=== PATIENT | male | born 1975 | race African-American/Black ===

== ENCOUNTER 2020-12-15 12:55 | Observation (INO) ==
[2020-12-15] MEDS ORDERED: NITROGLYCERIN SL 0.4 MG/TAB TAB SL PRN (13:05)
[2020-12-15 13:15] LABS: Basophils # (auto) 0.02 K/uL (0-0.2); Basophils % (auto) 0.3 %; Eosinophils # (auto) 0.32 K/uL (0-0.5); Eosinophils % (auto) 4.5 %; Hematocrit (blood only) 45.8 % (42-52); Hemoglobin 15.8 g/dL (14.0-18.0); Immature Granulocytes # (auto) 0.02 K/uL (0.00-0.02); Immature Granulocytes % (auto) 0.3 %; Lymphocytes # (auto) 1.77 K/uL (1.2-3.4); Lymphocytes % (auto) 25.1 %; Mean Corpuscular Hgb Conc 34.5 g/dL (32-36); Mean Corpuscular Volume 89.8 fL (80-100); Mean Platelet Volume 10.3 fL (7.4-10.4); Monocytes # (auto) 0.69 K/uL (0.11-0.59); Monocytes % (auto) 9.8 %; Neutrophils # (auto) 4.24 K/uL (1.4-6.5); Platelet Count 256 K/uL (130-400); RDW Coefficient of Variation 13.8 % (11.5-14.5); RDW Standard Deviation 45.3 fL (36.4-46.3); White Blood Count 7.06 K/uL (4.8-10.8)
[2020-12-15 13:25] LABS: D Dimer < 190 ug/L FEU (0-500); Partial Thromboplastin Time 27.3 Seconds (21.0-31.0)
[2020-12-15 13:34] LABS: BUN Creatinine Ratio 11.7 (10-20); Blood Urea Nitrogen 14 mg/dl (7-18); Calcium 9.8 mg/dl (8.5-10.1); Carbon Dioxide 28 mmol/L (21-32); Chloride 106 mmol/L (98-107); Creatinine Clr Calc Pharmacy 91.3 ml/min; Est GFR (African American) 83.8 ml/min; Est GFR (Non-African American) 72.3 ml/min; Glucose 105 mg/dl (70-99); Lipase 60 U/L (73-393); Potassium 3.8 mmol/L (3.5-5.1); Sodium 138 mmol/L (136-145)
[2020-12-15 13:38] LABS: Troponin I < 0.015 ng/ml (0-0.045)
--- NOTE | 2020-12-15 13:53 | Electrocardiogram Report ---
Test Reason : Blood Pressure : / mmHG Vent. Rate : 086 BPM Atrial Rate : 086 BPM P-R Int : 162 ms QRS Dur : 088 ms QT Int : 342 ms P-R-T Axes : 045 001 022 degrees QTc Int : 409 ms Normal sinus rhythm Nonspecific T wave abnormality Lateral leads Abnormal ECG When compared with ECG of 24-DEC-2018 06:30, T wave inversion no longer evident in Anterior leads Confirmed by Mike Brink ([id number]) on 12/15/2020 1:52:59 PM Referred By: [facility] Confirmed By:Mike Brink
--- NOTE | 2020-12-15 14:04 | Emergency Department Note ---
History of Present Illness General Chief Complaint: Chest Pain Stated Complaint: CHEST PAIN Time Seen by Provider: 12/15/20 12:58 History of Present Illness Provider Complaint: chest pain Onset (ago): week(s) Onset (Weeks): 1 Duration: intermittent Onset: during rest Pain Location: substernal and left chest Pain Radiation: LUE Severity: moderate Quality: + tightness and + other (tingling) Relieved By: + nitroglycerin Exacerbated By: + nothing Context: no recent illness, no recent surgery, no recent immobilization, no recent travel, no trauma/injury and no history of DVT/PE Associated symptoms: + dyspnea; no diaphoresis, no palpitations, no cough and no leg swelling Treatments prior to arrival: aspirin Home Medications Medication Instructions Recorded Confirmed Type aripiprazole [Abilify] 15 mg PO HS 12/22/18 12/22/18 History calcium carbonate [Oyster Shell 500 mg PO TID 12/22/18 12/22/18 History Calcium 500] calcium polycarbophil [Fiber 1,250 mg PO BID 12/22/18 12/22/18 History (calcium polycarbophil)] carvedilol 25 mg PO BID 12/22/18 12/22/18 History diphenhydramine HCl 100 mg PO HS 12/22/18 12/22/18 History escitalopram oxalate [Lexapro] 10 mg PO HS 12/22/18 12/22/18 History lisinopril 40 mg PO DAILY 12/22/18 12/22/18 History ranitidine HCl 150 mg PO BID 12/22/18 12/22/18 History trazodone 50 mg PO HS 12/22/18 12/22/18 History Allergies Allergy/AdvReac Type Severity Reaction Status Date / Time No Known Allergies Allergy Unverified 12/22/18 11:10 Past Med/Surg History Medical History Dyslipidemia GERD (gastroesophageal reflux disease) Hypertension Mood disorder Surgical History H/O removal of cyst Family History Father Myocardial infarction Brother Myocardial infarction Other Diabetes Social History Smoking Status: Never smoker Hx Alcohol Use: No Hx Substance Use: No Preferred Language: Gabonese Communication Ability: Effective Playground 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 Required: No Beliefs That Will Affect Care: Rastafari Rastafari Beliefs: Baptist marital status: Unknown Current Living Situation: Other Current Living Situation Comment: [facility] Feels Safe at Home: Yes Assistive Devices: Glasses Review of Systems A total of 10 systems reviewed and were otherwise negative Physical Exam Vital Signs Vital Signs - 24 hr 12/15/20 13:01 12/15/20 13:19 12/15/20 13:20 Temperature 37.1 C Temperature Source Oral Pulse Rate 90 Pulse Rate from SpO2 Sensor Pulse Rhythm Regular Pulse Strength Normal Respiratory Rate 16 Respiratory Effort / Characteristics Non-Labored Spontaneous Respiratory Depth Normal Respiratory Pattern Regular Blood Pressure 171/122 H Blood Pressure Mean 138 Pulse Oximetry 98 98 Oxygen Delivery Method Room Air Room Air Room Air Sepsis Recent Fever Within 48 Hours No Sepsis New/Unexplained Change in Mental Status No Sepsis Action Taken by Nursing No Action Required 12/15/20 13:35 12/15/20 14:29 Temperature Temperature Source Pulse Rate 97 H 93 H Pulse Rate from SpO2 Sensor 96 H 91 H Pulse Rhythm Pulse Strength Respiratory Rate 18 17 Respiratory Effort / Characteristics Respiratory Depth Respiratory Pattern Blood Pressure 164/110 H 187/130 H Blood Pressure Mean 128 149 Pulse Oximetry 93 96 Oxygen Delivery Method Sepsis Recent Fever Within 48 Hours Sepsis New/Unexplained Change in Mental Status Sepsis Action Taken by Nursing Physical Exam GENERAL: He is oriented to person, place, and time. He appears well-developed and well-nourished. He does not appear distressed. In handcuffs and leg cuffs with police guards at bedside. HENT: Exam performed. - Head: Normocephalic and atraumatic. - Right Ear: External ear normal. No mastoid tenderness. - Left Ear: External ear normal. No mastoid tenderness. - Mouth/Throat: The oropharynx is clear and moist. No trismus in the jaw. No dental abscesses or uvula swelling. No oropharyngeal exudate or tonsillar abscesses. EYES: Conjunctivae and EOM are normal. Pupils are equal, round, and reactive to light. Right eye exhibits no discharge. Left eye exhibits no discharge. No scleral icterus. NECK: Normal range of motion. Neck supple. No JVD present. No spinous process tenderness present. No carotid bruit present. No rigidity. No tracheal deviation and normal range of motion present. No Brudzinski's sign and no Kernig's sign noted. CV: Normal rate, regular rhythm, normal heart sounds and intact distal pulses. There is no peripheral edema. Palpable radial pulses bue. PULM/CHEST: Effort normal and breath sounds normal. No respiratory distress. No stridor. He has no wheezes. He has no rales. - Chest Wall: He exhibits no tenderness. ABD: The abdomen is soft. Bowel sounds are normal. He has no distension. No mass is present. There is no tenderness. There is no rebound, no guarding, no Justin's sign and no tenderness at McBurney's point. Rovsig negative. MUSC/SKEL: Normal range of motion. There is no peripheral edema, tenderness or deformity. LYMPH: No cervical adenopathy. NEURO: He is alert and oriented to person, place, and time. He has normal strength. No cranial nerve deficit or sensory deficit. Coordination and gait normal. GCS eye subscore is 4. GCS verbal subscore is 5. GCS motor subscore is 6. Cerebellar tests wnl. SKIN: Skin is warm and dry. He is not diaphoretic. PSYCH: He has a normal mood and affect. Behavior is normal. Judgment and thought content normal. Course Course 1258: The patient was evaluated in room A11. A complete history and physical exam was performed Cardiac monitoring: An order was placed for continuous cardiac monitoring. The monitor shows a rate of 90 with sinus rhythm 1428: Vital signs stable. Patient states his chest pain resolved with 1 sublingual nitro. Labs and imaging within normal limits. Patient be admitted for chest pain rule out ACS. [facility] hospitalist team will be contacted Medical Decision Making Laboratory Data Result diagrams: 12/15/20 13:05 12/15/20 13:05 Labs: Lab Results 12/15/20 12/15/20 12/15/20 Range/Units 13:05 13:05 13:05 WBC 7.06 (4.8-10.8) K/uL RBC 5.10 (4.7-6.1) M/uL Hgb 15.8 (14.0-18.0) g/dL Hct 45.8 (42-52) % MCV 89.8 (80-100) fL MCH 31.0 (25-34) pg MCHC 34.5 (32-36) g/dL RDW Std Deviation 45.3 (36.4-46.3) fL RDW Coeff of Janneth 13.8 (11.5-14.5) % Plt Count 256 (130-400) K/uL MPV 10.3 (7.4-10.4) fL Immature Gran % (Auto) 0.3 % Neut % (Auto) 60.0 % Lymph % (Auto) 25.1 % [place] % (Auto) 9.8 % Eos % (Auto) 4.5 % Baso % (Auto) 0.3 % Neut # (Auto) 4.24 (1.4-6.5) K/uL Lymph # (Auto) 1.77 (1.2-3.4) K/uL [place] # (Auto) 0.69 H (0.11-0.59) K/uL Eos # (Auto) 0.32 (0-0.5) K/uL Baso # (Auto) 0.02 (0-0.2) K/uL Immature Gran # (Auto) 0.02 (0.00-0.02) K/uL PT 10.0 (9.0-12.0) Seconds INR 1.0 (0.9-1.1) APTT 27.3 (21.0-31.0) Seconds PTT Ratio 1.0 D-Dimer < 190 (0-500) ug/L FEU Sodium 138 (136-145) mmol/L Potassium 3.8 (3.5-5.1) mmol/L Chloride 106 (98-107) mmol/L Carbon Dioxide 28 (21-32) mmol/L Anion Gap 4.0 (3-11) BUN 14 (7-18) mg/dl Creatinine 1.19 (0.6-1.4) mg/dl Est Cr Clr Drug Dosing 91.3 ml/min Est GFR ( Amer) 83.8 ml/min Est GFR (Non-Af Amer) 72.3 ml/min BUN/Creatinine Ratio 11.7 (10-20) Glucose 105 H (70-99) mg/dl Calcium 9.8 (8.5-10.1) mg/dl Troponin I < 0.015 (0-0.045) ng/ml Lipase 60 L (73-393) U/L Imaging Data Chest x-ray: Radiologist's impression: Chest X-Ray 06/04/21 13:05 XR chest 2V PA/lateral HISTORY: Atypical Chest Pain COMPARISON: Chest CTA 12/22/2018. FINDINGS: The lungs are clear. The heart is normal in size. No pleural effusions. No pneumothorax. Left coronary artery stents are noted. IMPRESSION: No acute process. ACT 112: Negative or not required by law. Electronically signed by: Cory Daly M.D. 12/15/2020 2:07 PM ECG Data Indication: chest pain Rate (beats per minute): 86 Rhythm: normal sinus Findings: no ST depression, no ST elevation and no prolonged QT MDM Narrative Vital signs stable. Patient states his chest pain resolved with 1 sublingual nitro. Labs and imaging within normal limits. Patient be admitted for chest pain rule out ACS. [facility] hospitalist team will be contacted Impression & Plan Chest pain Discharge Plan Visit Data Chief Complaint: Chest Pain Stated Complaint: CHEST PAIN ED Provider: Aldo Townsend Discharge Problem: Chest pain Patient Disposition: Being Evaluated by Hospitalist Forms Stand Alone Forms: [facility] Prescriptions Prescriptions: No Action carvedilol 25 mg Tablet 25 mg PO BID RF: 0 diphenhydramine HCl 50 mg Capsule 100 mg PO HS RF: 0 trazodone 50 mg Tablet 50 mg PO HS RF: 0 calcium carbonate [Oyster Shell Calcium 500] 500 mg calcium (1,250 mg) Tablet 500 mg PO TID RF: 0 ranitidine HCl 150 mg Tablet 150 mg PO BID RF: 0 calcium polycarbophil [Fiber (calcium polycarbophil)] 625 mg Tablet 1,250 mg PO BID RF: 0 lisinopril 40 mg Tablet 40 mg PO DAILY RF: 0 escitalopram oxalate [Lexapro] 10 mg Tablet 10 mg PO HS RF: 0 aripiprazole [Abilify] 15 mg Tablet 15 mg PO HS RF: 0 Referrals Referrals: Hema ADEN [Primary Care Provider] - Discharge Problem: Chest pain Qualifiers: Chest pain type: unspecified Qualified Code(s): R07.9 - Chest pain, unspecified
--- NOTE | 2020-12-15 14:09 | XRay Report ---
XR chest 2V PA/lateral HISTORY: Atypical Chest Pain COMPARISON: Chest CTA 12/22/2018. FINDINGS: The lungs are clear. The heart is normal in size. No pleural effusions. No pneumothorax. Le ft coronary artery stents are noted. IMPRESSION: No acute process. ACT 112: Negative or not required by law. Electronically signed by: Cory Daly M.D. 12/15/2020 2:07 PM
[2020-12-15] MEDS ORDERED: ASPIRIN 81 MG CHEW PO STA (15:49)
--- NOTE | 2020-12-15 15:53 | History & Physical Report ---
Date of Service December 15, 2020 Assessment & Plan (1) Chest pain: (2) CAD (coronary artery disease): Pt is 45 y/o M with PMH CAD s/p JAZZY stent x2 to CAD and 1 JAZZY to obtuse marginal in 12/22/2018, HTN, HLD, GERD, mood disorder presented to ER with complaint of progressive chest pain, SOB over past several months, worsening past week requiring 2 SL nitro twice day. In ER afebrile, P: 90, R: 16, BP: 171/122, 98% on RA Was given 324mg ASA prior to arrival in ER. In ER pt given 1 SL nitro with resolution of CP. Negative initial troponin. EKG with T wave flattening lateral leads, compared to EKG in 2019 no further T wave inversion anterior leads. CHEST PAIN R/O ACS vs Hypertensive emergency -Monitor Vitals -Repeat EKG in am -Will trend troponin -Echo -Nitropaste Q6H. Hold home isosorbide while nitropaste -lipid panel in am, continue statin -Continue aspirin, Brillinta, carvedilol, digoxin -Digoxin level pending -Cardiology consult (3) Hypertension: Elevated BP's in ER -Nitropaste Q6H -Continue amlodipine, carvedilol, lisinopril (4) Dyslipidemia: -Continue statin (5) Mood disorder: -Continue Abilify, diphenhydramine (6) GERD (gastroesophageal reflux disease): -Continue PPI DVT Prophylaxis -SCDs Full Code [facility] inmate Pt was seen and care coordinated with Dr Fam. See addendum History of Present Illness Chief Complaint: CP Primary Care Provider: MARKIE Garrido Pt is 45 y/o M with PMH CAD s/p JAZZY stent x2 to CAD and 1 JAZZY to obtuse marginal in 12/22/2018, HTN, HLD, GERD, mood disorder presented to ER with complaint of progressive chest pain. Patient states since his stent placement in 2019 he has intermittent left-sided chest pain with radiation to left arm which occurs approximately twice a week and he uses 1 sublingual nitroglycerin with relief. CP can occur at rest or with exertion. States over the past 2 months has noticed increased symptoms occurring more frequently in the past week has been needing to use 2 sublingual nitroglycerin a day secondary to left-sided chest pain with radiation to left arm and left arm tingling. He also reports worsening shortness of breath over the past several months with exertion. Reports has some night awakenings waking up with shortness of breath and gasping for air. C/O intermittent palpitations not associated with CP. Also reports nonproductive cough. Denies any lower extremity edema. He reports his blood pressures have been running high over the past several months and denies any medication changes. Pt reports chronic dizziness that he relates to his medications, denies any changes from baseline. Denies fever/chills, diaphoresis, N/V/D/C, TRIPLETT, syncope, vision changes, neck pain, sore throat, choking, otalgia, rhinorrhea, abdominal pain, paresthesias, weakness, extremity weakness, rashes, urinary symptoms. Was given 324mg ASA prior to arrival in ER. In ER pt given 1 SL nitro with resolution of CP. Negative initial troponin. EKG with T wave flattening lateral leads, compared to EKG in 2019 no further T wave inversion anterior leads. Will be admitted for further evaluation. Allergies Allergy/AdvReac Type Severity Reaction Status Date / Time sodium chloride AdvReac Unknown CONTRAINDICATION Verified 12/15/20 15:32 [From [place] Nasal] PER [facility]. Home Medications Medication Instructions Recorded Confirmed Type carvedilol 50 mg PO BID 12/22/18 12/15/20 History diphenhydramine HCl 100 mg PO HS 12/22/18 12/15/20 History lisinopril 40 mg PO QAM 12/22/18 12/15/20 History amlodipine 10 mg PO QAM 12/15/20 12/15/20 History aripiprazole [Abilify] 5 mg PO HS 12/15/20 12/15/20 History aripiprazole [Abilify] 20 mg PO QAM 12/15/20 12/15/20 History aspirin 81 mg PO QAM 12/15/20 12/15/20 History celecoxib [Celebrex] 200 mg PO BID 12/15/20 12/15/20 History digoxin 125 mcg PO QAM 12/15/20 12/15/20 History duloxetine See Rx Instructions .ROUTE .COMPLEX 12/15/20 12/15/20 History isosorbide mononitrate 30 mg PO QAM 12/15/20 12/15/20 History nitroglycerin [Nitrostat] 0.4 mg SUBLINGUAL DIRECTED PRN 12/15/20 12/15/20 History omeprazole 20 mg PO BID 12/15/20 12/15/20 History rosuvastatin 20 mg PO HS 12/15/20 12/15/20 History ticagrelor [Brilinta] 90 mg PO BID 12/15/20 12/15/20 History Past Med/Surg History Medical History (Updated 12/15/20 @ 18:27 by Kalee Patel PA-C) CAD (coronary artery disease) Dyslipidemia GERD (gastroesophageal reflux disease) GERD (gastroesophageal reflux disease) Hypertension Mood disorder Surgical History H/O removal of cyst History of cardiac cath 12/22/2018 [facility]CA 2 JAZZY to LAD and 1 JAZZY to obtuse marginal, [facility] Family History Father Myocardial infarction Brother Myocardial infarction Other Diabetes Social History Smoking Status: Current some day smoker Second Hand Exposure: No; Do You Dip or Chew Tobacco: No; Tobacco Cessation Education Requested by Patient: No Hx Alcohol Use: No Hx Substance Use: No Preferred Language: Tunisian Communication Ability: Effective Allergy And Immunology Chief Required: No Beliefs That Will Affect Care: None marital status: Unknown Current Living Situation: Other Current Living Situation Comment: [place] Other Information That Helps Us Care for You: No Feels Safe at Home: Yes Assistive Devices: Glasses Review of Systems Review of Systems: All systems reviewed & are unremarkable except as noted in HPI & below Physical Exam Physical Exam: General: no distress, obese Head: normocephalic, atraumatic Eyes: PERRL, EOM's intact, conjunctiva non-injected, anicteric ENT: normal inspection external ears, nose, mucous membranes moist Neck: supple, trachea midline Lungs: clear, no respiratory distress, no wheezing/rhonchi/rales CV: RRR, no murmur, no pretibial edema Abd: normal BS, soft, non-tender Ext: no cyanosis, no calf tenderness Neuro: A&O x 3, no focal deficits noted, normal affect Skin: warm, dry Results & Data Results & Data ([facility]) Vital Signs (Past 12 Hours) Vital Signs Temp Pulse Resp BP Pulse Ox 12/15/20 15:34 84 20 181/125 H 96 12/15/20 15:00 94 H 14 181/122 H 96 12/15/20 14:30 87 18 190/126 H 98 12/15/20 14:29 93 H 17 187/130 H 96 12/15/20 13:35 97 H 18 164/110 H 93 12/15/20 13:19 98 12/15/20 13:01 37.1 C 90 16 171/122 H 98 Laboratory Results Short CBC 12/15/20 Range/Units 13:05 WBC 7.06 (4.8-10.8) K/uL Hgb 15.8 (14.0-18.0) g/dL Hct 45.8 (42-52) % Plt Count 256 (130-400) K/uL BMP 12/15/20 13:05 Sodium 138 Potassium 3.8 Chloride 106 Carbon Dioxide 28 BUN 14 Creatinine 1.19 Glucose 105 H Calcium 9.8 Cardiac Enzymes 12/15/20 Range/Units 13:05 Troponin I < 0.015 (0-0.045) ng/ml Diagnostic Findings Chest X-Ray 12/15/20 13:05 XR chest 2V PA/lateral HISTORY: Atypical Chest Pain COMPARISON: Chest CTA 12/22/2018. FINDINGS: The lungs are clear. The heart is normal in size. No pleural effusions. No pneumothorax. Left coronary artery stents are noted. IMPRESSION: No acute process. ACT 112: Negative or not required by law. Electronically signed by: Cory Daly M.D. 12/15/2020 2:07 PM ECG Rate (beats per minute): 86 Rhythm: sinus rhythm Additional Comments: T wave flattening lateral leads Code Status & VTE Plan VTE Prophylaxis Plan VTE Prophylaxis will be ordered: Yes Supervising Physician Co-Signing Physician Notes Attending addendum The patient was seen and examined in emergency room He has been complaining of pain in the precordium with radiation to the neck and the left upper extremity which is off and on for some time and worsening for the past week He received 1 sublingual nitro and 324 mg aspirin in the emergency room and the pain is reasonably controlled He has a significant history of CAD status post JAZZY stent x2 to LAD and obtuse marginal on 12/22/2018 He was admitted to telemetry unit for continued management On examination Lying in bed comfortably Hemodynamically stable with blood pressure on the higher side Chest-clear to auscultate bilaterally Heart-S1-S2, regular, no murmur Abdomen-benign Extremities-trace edema bilaterally 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
[2020-12-15] MEDS ORDERED: lisinopril 40 MG TAB PO STA (16:08)
[2020-12-15] MEDS ORDERED: carvediloL 25 MG TAB PO STA (16:08)
[2020-12-15] MEDS ORDERED: ACETAMINOPHEN 325 MG TAB PO PRN (18:20)
[2020-12-15] MEDS: NITROGLYCERIN 2% OINTMENT 30GM TUBE EXT SCH ×2 (19:44→21:08)
[2020-12-15] MEDS ORDERED: amLODIPine BESYLATE 5 MG TAB PO ONE (20:00)
[2020-12-15] MEDS: carvediloL 25 MG TAB PO SCH (21:03)
[2020-12-15] MEDS: ARIPiprazole 5 MG TAB PO SCH (21:03)
[2020-12-15] MEDS: diphenhydrAMINE Capsule 25 MG CAP PO SCH (21:03)
[2020-12-15] MEDS: ROSUVASTATIN CALCIUM 20 MG TAB PO SCH (21:04)
[2020-12-15] MEDS: TICAGRELOR 90 MG TAB PO SCH (21:04)
[2020-12-15] MEDS: PANTOprazole 40 MG TAB PO SCH (21:04)
[2020-12-16] MEDS ORDERED: CALCIUM CARBONATE 500 MG CHEWABLE TAB PO STA (01:30)
[2020-12-16] MEDS: NITROGLYCERIN 2% OINTMENT 30GM TUBE EXT SCH ×4 (03:45→21:02)
[2020-12-16 05:57] LABS: Hematocrit (blood only) 44.5 % (42-52); Hemoglobin 15.3 g/dL (14.0-18.0); Mean Corpuscular Hemoglobin 30.8 pg (25-34); Mean Corpuscular Hgb Conc 34.4 g/dL (32-36); Mean Corpuscular Volume 89.5 fL (80-100); Platelet Count 214 K/uL (130-400); RDW Coefficient of Variation 13.8 % (11.5-14.5); Red Blood Count 4.97 M/uL (4.7-6.1); White Blood Count 6.79 K/uL (4.8-10.8)
[2020-12-16 06:36] LABS: BUN Creatinine Ratio 15.1 (10-20); Creatinine Clr Calc Pharmacy 107.4 ml/min; Est GFR (African American) 102.2 ml/min; Est GFR (Non-African American) 88.2 ml/min; Potassium 3.7 mmol/L (3.5-5.1)
--- NOTE | 2020-12-16 07:48 | Electrocardiogram Report ---
Test Reason : Blood Pressure : / mmHG Vent. Rate : 081 BPM Atrial Rate : 081 BPM P-R Int : 176 ms QRS Dur : 096 ms QT Int : 354 ms P-R-T Axes : 056 016 -06 degrees QTc Int : 411 ms Normal sinus rhythm Diffuse Nonspecific T wave abnormality Abnormal ECG When compared with ECG of 15-DEC-2020 13:03, No significant change was found Confirmed by Mike Brink ([id number]) on 12/16/2020 7:48:09 AM Referred By: [facility] Confirmed By:Mike Brink
[2020-12-16] MEDS ORDERED: SODIUM CHLORIDE 0.65% NA SOLN 45 ML (OCEAN) PRN (08:34)
[2020-12-16] MEDS: ASPIRIN 81 MG ECTAB PO SCH (09:01)
[2020-12-16] MEDS: amLODIPine BESYLATE 5 MG TAB PO SCH (09:01)
[2020-12-16] MEDS: ISOSORBIDE MONO EXTENDED REL 30 MG TABCR PO SCH (09:02)
[2020-12-16] MEDS: DIGOXIN 0.125 MG TAB PO SCH (09:02)
[2020-12-16] MEDS: ARIPiprazole 10 MG TAB PO SCH (09:02)
[2020-12-16] MEDS: lisinopril 40 MG TAB PO SCH (09:02)
[2020-12-16] MEDS: TICAGRELOR 90 MG TAB PO SCH ×2 (09:03→21:02)
[2020-12-16] MEDS: carvediloL 25 MG TAB PO SCH ×2 (09:03→21:03)
[2020-12-16] MEDS: PANTOprazole 40 MG TAB PO SCH ×2 (09:03→21:02)
--- NOTE | 2020-12-16 09:41 | Cardiology Consultation ---
Date of Consultation December 16, 2020 Assessment & Plan (1) Chest pain: (2) CAD (coronary artery disease): (3) Hypertension: (4) Ischemic cardiomyopathy: (5) GERD (gastroesophageal reflux disease): The patient has had no chest pain since admission. His cardiac markers are negative. EKG shows nonspecific changes. He is hypertensive and I will adjust his medications. He had an echocardiogram completed this morning which I will review. During his admission in 2019 he had an estimated left ventricular ejection fraction of 30% after his stent procedures. We should update his ischemic cardiomyopathy and LV function. The patient can eat today. I will have further recommendations after I review the echocardiogram. The patient's blood pressure seems to be better after he received his morning medications. History of Present Illness Attending Physician: Waldemar Olson MD History of Present Illness This is a 45-year-old male patient who was last in this hospital and last seen by my group in 2019 when he presented with a non-STEMI and received stents within his LAD and obtuse marginal from the left circumflex artery. He was then lost to follow-up most likely because he is incarcerated. He is now been admitted with chest pain. The pain has been present for approximately 1 to 2 weeks. It is intermittent and not associated to activity. He describes it as a discomfort over his left breast with some paresthesias in the left hand. It last for several minutes and then spontaneously resolves or he takes a sublingual nitroglycerin. He is noted his blood pressure has been high and he has been self-medicating with additional blood pressure medications when he feels he needs it. He does have a history of reflux for which he takes Prilosec. His discomfort is not associated to food. He has had no nausea vomiting. Allergies Allergy/AdvReac Type Severity Reaction Status Date / Time No Known Allergies Allergy Verified 12/16/20 08:50 Home Medications Medication Instructions Recorded Confirmed Type carvedilol 50 mg PO BID 12/22/18 12/15/20 History diphenhydramine HCl 100 mg PO HS 12/22/18 12/15/20 History lisinopril 40 mg PO QAM 12/22/18 12/15/20 History amlodipine 10 mg PO QAM 12/15/20 12/15/20 History aripiprazole [Abilify] 5 mg PO HS 12/15/20 12/15/20 History aripiprazole [Abilify] 20 mg PO QAM 12/15/20 12/15/20 History aspirin 81 mg PO QAM 12/15/20 12/15/20 History celecoxib [Celebrex] 200 mg PO BID 12/15/20 12/15/20 History digoxin 125 mcg PO QAM 12/15/20 12/15/20 History duloxetine See Rx Instructions .ROUTE .COMPLEX 12/15/20 12/15/20 History isosorbide mononitrate 30 mg PO QAM 12/15/20 12/15/20 History nitroglycerin [Nitrostat] 0.4 mg SUBLINGUAL DIRECTED PRN 12/15/20 12/15/20 History omeprazole 20 mg PO BID 12/15/20 12/15/20 History rosuvastatin 20 mg PO HS 12/15/20 12/15/20 History ticagrelor [Brilinta] 90 mg PO BID 12/15/20 12/15/20 History Patient History Medical History CAD (coronary artery disease) Dyslipidemia GERD (gastroesophageal reflux disease) GERD (gastroesophageal reflux disease) Hypertension Mood disorder Surgical History H/O removal of cyst History of cardiac cath 12/22/2018 [facility]CA 2 JAZZY to LAD and 1 JAZZY to obtuse marginal, [facility] Family History Father Myocardial infarction Brother Myocardial infarction Other Diabetes Social History Smoking Status: Current some day smoker Second Hand Exposure: No; Do You Dip or Chew Tobacco: No; Tobacco Cessation Education Requested by Patient: No Hx Alcohol Use: No Hx Substance Use: No Preferred Language: Kazakh Communication Ability: Effective Manager Instrumentation Required: No Beliefs That Will Affect Care: None marital status: Unknown Current Living Situation: Other Current Living Situation Comment: DOC Other Information That Helps Us Care for You: No Feels Safe at Home: Yes Assistive Devices: Glasses Review of Systems Review of Systems: All systems reviewed & are unremarkable except as noted in HPI & below In addition the patient has had no melena or hematochezia. Physical Exam Physical Exam: General: no acute distress and stated age Head: normocephalic, no masses, lesions, tenderness or abnormalities Eyes: conjunctiva are pink and non-injected, sclera clear Neck: supple, no adenopathy, no bruits, normal jugular venous pulse, no hepatojugular reflux Chest: normal shape and normal respiratory effort Lungs: clear to auscultation and percussion Cardiac Exam: - regular rate & rhythm, no murmurs gallops or rubs - normal S1, normal S2 Pulses: 2(+) throughout Abdomen: abdomen soft, non-tender, no abnormal masses and no hepatosplenomegaly Musculoskeletal: no gait disturbance, no joint inflammation, no deforming arthritis Extremities: no edema and no cyanosis Neuro: grossly normal exam Results & Data ([facility]) Vital Signs (Past 12 Hours) Vital Signs Temp Pulse Resp BP Pulse Ox 12/16/20 09:02 88 12/16/20 07:31 85 12/16/20 06:19 69 19 139/94 94 12/16/20 05:19 72 16 173/105 H 90 12/16/20 04:18 77 19 142/101 H 93 12/16/20 04:00 36.8 C 12/16/20 03:18 84 11 L 133/88 93 12/16/20 02:18 75 15 117/97 95 12/16/20 01:18 87 19 153/99 H 95 12/16/20 00:19 96 H 22 135/91 92 12/16/20 00:00 36.6 C 90 12/15/20 23:18 83 15 132/80 97 12/15/20 22:18 79 20 147/91 H 92 Laboratory Results Laboratory Results - last 24 hr 12/15/20 12/15/20 12/15/20 13:05 13:05 13:05 WBC 7.06 RBC 5.10 Hgb 15.8 Hct 45.8 MCV 89.8 MCH 31.0 MCHC 34.5 RDW Std Deviation 45.3 RDW Coeff of Janneth 13.8 Plt Count 256 MPV 10.3 Immature Gran % (Auto) 0.3 Neut % (Auto) 60.0 Lymph % (Auto) 25.1 [place] % (Auto) 9.8 Eos % (Auto) 4.5 Baso % (Auto) 0.3 Neut # (Auto) 4.24 Lymph # (Auto) 1.77 [place] # (Auto) 0.69 H Eos # (Auto) 0.32 Baso # (Auto) 0.02 Immature Gran # (Auto) 0.02 PT 10.0 INR 1.0 APTT 27.3 PTT Ratio 1.0 D-Dimer < 190 Sodium 138 Potassium 3.8 Chloride 106 Carbon Dioxide 28 Anion Gap 4.0 BUN 14 Creatinine 1.19 Est Cr Clr Drug Dosing 91.3 Est GFR ( Amer) 83.8 Est GFR (Non-Af Amer) 72.3 BUN/Creatinine Ratio 11.7 Glucose 105 H Calcium 9.8 Troponin I < 0.015 Triglycerides Cholesterol LDL Cholesterol, Calc VLDL Cholesterol, Calc HDL Cholesterol Cholesterol/HDL Ratio Lipase 60 L Nasal Screen MRSA (PCR) Digoxin COVID-19 Eval Order SARS-CoV-2 (PCR) 12/15/20 12/15/20 12/15/20 14:35 14:35 16:19 WBC RBC Hgb Hct MCV MCH MCHC RDW Std Deviation RDW Coeff of Janneth Plt Count MPV Immature Gran % (Auto) Neut % (Auto) Lymph % (Auto) [place] % (Auto) Eos % (Auto) Baso % (Auto) Neut # (Auto) Lymph # (Auto) [place] # (Auto) Eos # (Auto) Baso # (Auto) Immature Gran # (Auto) PT INR APTT PTT Ratio D-Dimer Sodium Potassium Chloride Carbon Dioxide Anion Gap BUN Creatinine Est Cr Clr Drug Dosing Est GFR ( Amer) Est GFR (Non-Af Amer) BUN/Creatinine Ratio Glucose Calcium Troponin I Triglycerides Cholesterol LDL Cholesterol, Calc VLDL Cholesterol, Calc HDL Cholesterol Cholesterol/HDL Ratio Lipase Nasal Screen MRSA (PCR) Digoxin 0.4 L COVID-19 Eval Order Covid19 at [facility] SARS-CoV-2 (PCR) NEGATIVE 12/15/20 12/16/20 12/16/20 19:11 00:55 00:55 WBC RBC Hgb Hct MCV MCH MCHC RDW Std Deviation RDW Coeff of Janneth Plt Count MPV Immature Gran % (Auto) Neut % (Auto) Lymph % (Auto) [place] % (Auto) Eos % (Auto) Baso % (Auto) Neut # (Auto) Lymph # (Auto) [place] # (Auto) Eos # (Auto) Baso # (Auto) Immature Gran # (Auto) PT INR APTT PTT Ratio D-Dimer Sodium Potassium Chloride Carbon Dioxide Anion Gap BUN Creatinine Est Cr Clr Drug Dosing Est GFR ( Amer) Est GFR (Non-Af Amer) BUN/Creatinine Ratio Glucose Calcium Troponin I < 0.015 < 0.015 Triglycerides Cholesterol LDL Cholesterol, Calc VLDL Cholesterol, Calc HDL Cholesterol Cholesterol/HDL Ratio Lipase Nasal Screen MRSA (PCR) Negative Digoxin COVID-19 Eval Order SARS-CoV-2 (PCR) 12/16/20 12/16/20 05:35 05:35 WBC 6.79 RBC 4.97 Hgb 15.3 Hct 44.5 MCV 89.5 MCH 30.8 MCHC 34.4 RDW Std Deviation 45.0 RDW Coeff of Janneth 13.8 Plt Count 214 MPV 10.0 Immature Gran % (Auto) Neut % (Auto) Lymph % (Auto) [place] % (Auto) Eos % (Auto) Baso % (Auto) Neut # (Auto) Lymph # (Auto) [place] # (Auto) Eos # (Auto) Baso # (Auto) Immature Gran # (Auto) PT INR APTT PTT Ratio D-Dimer Sodium 140 Potassium 3.7 Chloride 108 H Carbon Dioxide 25 Anion Gap 7.0 BUN 15 Creatinine 1.01 Est Cr Clr Drug Dosing 107.4 Est GFR ( Amer) 102.2 Est GFR (Non-Af Amer) 88.2 BUN/Creatinine Ratio 15.1 Glucose 113 H Calcium 9.0 Troponin I Triglycerides 93 Cholesterol 108 LDL Cholesterol, Calc 57 VLDL Cholesterol, Calc 19 HDL Cholesterol 32 Cholesterol/HDL Ratio 3 Lipase Nasal Screen MRSA (PCR) Digoxin COVID-19 Eval Order SARS-CoV-2 (PCR) Medications Administered Current Inpatient Medications Acetaminophen (Acetaminophen 325 Mg Tab) 650 mg PO Q4H PRN PRN Reason: Pain or Fever Stop: 01/14/21 18:19 Amlodipine Besylate (Amlodipine Besylate 5 Mg Tab) 10 mg PO QAM [facility] Stop: 01/15/21 08:59 Last Admin: 12/16/20 09:01 Dose: 10 mg Documented by: Aripiprazole (Aripiprazole 10 Mg Tab) 20 mg PO QAM [facility] DE JESUS Stop: 01/15/21 08:59 Last Admin: 12/16/20 09:02 Dose: 20 mg Documented by: Aripiprazole (Aripiprazole 5 Mg Tab) 5 mg PO [facility] Stop: 01/14/21 20:59 Last Admin: 12/15/20 21:03 Dose: 5 mg Documented by: Aspirin (Aspirin 81 Mg Ectab) 81 mg PO [facility] Stop: 01/15/21 08:59 Last Admin: 12/16/20 09:01 Dose: 81 mg Documented by: Carvedilol (Carvedilol 25 Mg Tab) 50 mg PO BID [facility] Stop: 01/14/21 20:59 Last Admin: 12/16/20 09:03 Dose: 50 mg Documented by: Digoxin (Digoxin 0.125 Mg Tab) 0.125 mg PO [facility] Stop: 01/15/21 08:59 Last Admin: 12/16/20 09:02 Dose: 0.125 mg Documented by: Diphenhydramine HCl (Diphenhydramine Capsule 25 Mg Cap) 100 mg PO [facility] Stop: 01/14/21 20:59 Last Admin: 12/15/20 21:03 Dose: 100 mg Documented by: Isosorbide Mononitrate (Isosorbide [place] Extended Rel 30 Mg Tabcr) 30 mg PO [facility] Stop: 01/15/21 08:59 Last Admin: 12/16/20 09:02 Dose: 30 mg Documented by: Lisinopril (Lisinopril 40 Mg Tab) 40 mg PO [facility] Stop: 01/15/21 08:59 Last Admin: 12/16/20 09:02 Dose: 40 mg Documented by: Nitroglycerin (Nitroglycerin 2% Ointment 30gm Tube) 1 inch EXT Q6H [facility] Stop: 01/14/21 15:44 Last Admin: 12/16/20 09:07 Dose: 1 inch Documented by: Pantoprazole Sodium (Pantoprazole 40 Mg Tab) 40 mg PO BID [facility]; Protocol Stop: 01/14/21 20:59 Last Admin: 12/16/20 09:03 Dose: 40 mg Documented by: Rosuvastatin Calcium (Rosuvastatin Calcium 20 Mg Tab) 20 mg PO [facility] Stop: 01/14/21 20:59 Last Admin: 12/15/20 21:04 Dose: 20 mg Documented by: Sodium Chloride (Sodium Chloride 0.65% Na Soln 45 Ml ([place])) 1 sprays NA BID PRN PRN Reason: Dryness Stop: 01/15/21 08:33 Last Admin: 12/16/20 09:07 Dose: 1 sprays Documented by: Ticagrelor (Ticagrelor 90 Mg Tab) 90 mg PO BID [facility] DE JESUS Stop: 01/14/21 20:59 Last Admin: 12/16/20 09:03 Dose: 90 mg Documented by: (1) Chest pain Chest pain type: unspecified Qualified Code(s): R07.9 - Chest pain, unspecified
[2020-12-16] MEDS: AMOXICILLIN/CLAVULANATE 500 MG TAB PO SCH ×2 (12:51→16:57)
--- NOTE | 2020-12-16 15:14 | Hospitalist Progress Note ---
Date of Service December 16, 2020 Assessment & Plan (1) Chest pain: (2) CAD (coronary artery disease): Patient is a 45 yr male with H/O CAD s/p JAZZY stent x2 to CAD and 1 JAZZY to obtuse marginal in 12/22/2018, HTN, HLD, GERD, mood disorder presented to ER with complaint of progressive chest pain, SOB over past several months, worsening past week requiring 2 SL nitro twice day. Chest pain Rule out ACS H/O CAD S/P Stent -CXR:No acute process. -EKG: Diffuse nonspecific T wave abnormality. -Troponin: Negative -ECHO: Moderate concentric LVH. Left ventricular wall motion is normal. EF 60 to 65%. Grade 1 diastolic dysfunction. Right ventricle systolic function is normal. Continue Aspirin, Brillinta, carvedilol, isosorbide, lisinopril, rosuvastatin Appreciate cardiology input Acute bronchitis Chest x-ray as above Started on Augmentin (3) Hypertension: Hypertensive urgency Continue amlodipine, carvedilol,lisinopril Also started on Nitropaste Monitor (4) Dyslipidemia: Lipid panel within normal limits Continue statin (5) Mood disorder: Continue Abilify, diphenhydramine (6) GERD (gastroesophageal reflux disease): Continue PPI DVT x SCDs Code Status Full Code Disposition [facility] Admission and Anticipated Discharge Date Admission Date: December 15, 2020 Subjective Patient is seen and examined at bedside States having cough with greenish to yellow expectoration Chest pain resolved States having some numbness and left-sided chest region Reports dyspnea on exertion Offers no other complaints Denies nausea, vomiting, dizziness, nausea, abdominal pain Review of Systems Review of Systems: All systems reviewed & are unremarkable except as noted in HPI & below Physical Exam Physical Exam: Physical Exam: Vitals signs as noted above General Appearance:Moderately built and nourished, no apparent distress Head: normocephalic, Atraumatic Eyes: normal inspection, EOMI Neck: supple, Trachea midline Respiratory/Chest: Decreased breath sounds, CTA Cardiovascular: S1, S2, No murmur Abdomen/GI:Soft, Non tender, Bowel sounds present Extremities/Musculoskeletal:normal inspection, no edema Neurologic/Psych:AAOX3, grossly no focal neurological deficits Skin: normal color, warm Results & Data Results & Data ([facility]) Vital Signs (Past 12 Hours) Vital Signs Temp Pulse Resp BP Pulse Ox 12/16/20 12:20 85 14 145/89 H 12/16/20 11:18 71 19 118/59 L 95 12/16/20 10:18 76 21 117/69 92 12/16/20 10:07 73 14 144/93 H 12/16/20 09:02 88 12/16/20 07:31 85 12/16/20 07:18 73 14 148/107 H 97 12/16/20 06:19 69 19 139/94 94 12/16/20 05:19 72 16 173/105 H 90 12/16/20 04:18 77 19 142/101 H 93 12/16/20 04:00 36.8 C 12/16/20 03:18 84 11 L 133/88 93 Laboratory Results Short CBC 12/16/20 Range/Units 05:35 WBC 6.79 (4.8-10.8) K/uL Hgb 15.3 (14.0-18.0) g/dL Hct 44.5 (42-52) % Plt Count 214 (130-400) K/uL BMP 12/16/20 05:35 Sodium 140 Potassium 3.7 Chloride 108 H Carbon Dioxide 25 BUN 15 Creatinine 1.01 Glucose 113 H Calcium 9.0 Cardiac Enzymes 12/15/20 12/16/20 Range/Units 19:11 00:55 Troponin I < 0.015 < 0.015 (0-0.045) ng/ml (1) Chest pain Chest pain type: unspecified Qualified Code(s): R07.9 - Chest pain, unspecified
[2020-12-16] MEDS: ROSUVASTATIN CALCIUM 20 MG TAB PO SCH (21:02)
[2020-12-16] MEDS: diphenhydrAMINE Capsule 25 MG CAP PO SCH (21:02)
[2020-12-16] MEDS: ARIPiprazole 5 MG TAB PO SCH (21:03)
[2020-12-16] MEDS ORDERED: DULoxetine HCL 30 MG CAP PO SCH (21:20)
[2020-12-16] MEDS ORDERED: ACETAMINOPHEN 325 MG TAB PO STA (22:23)
--- NOTE | 2020-12-16 22:23 | Communication Note ---
Date of Service: December 16, 2020 Notified by RN of patient headache complaints. Nitropaste removed.
[2020-12-16] MEDS: traMADol HCL 50 MG TABLET PO PRN (22:58)
--- NOTE | 2020-12-16 23:12 | CT Scan Report ---
HEAD CT NONCONTRAST CT DOSE: 1035.81 mGycm HISTORY: Headache. TECHNIQUE: Multiaxial CT images of the head were performed without the use of intravenous contrast. A utomated exposure control was utilized for this study. A dose lowering technique was utilized adheri ng to the principles of ALARA. Comparison: None. Findings: The paranasal sinuses and mastoid air cells are clear. The calvarium and skull base are int act. The ventricles and sulci are within normal limits. There is no mass, hematoma, midline shift, or acute infarct. Impression: No acute intracranial abnormality. ACT 112: Negative or not required by law. Electronically signed by: Cory Daly M.D. 12/16/2020 11:11 PM
[2020-12-17 05:37] LABS: Hematocrit (blood only) 44.4 % (42-52); Hemoglobin 15.4 g/dL (14.0-18.0); Mean Corpuscular Hemoglobin 30.3 pg (25-34); Mean Corpuscular Hgb Conc 34.7 g/dL (32-36); Mean Corpuscular Volume 87.4 fL (80-100); Mean Platelet Volume 10.3 fL (7.4-10.4); Platelet Count 203 K/uL (130-400); RDW Coefficient of Variation 13.6 % (11.5-14.5); RDW Standard Deviation 43.8 fL (36.4-46.3); Red Blood Count 5.08 M/uL (4.7-6.1); White Blood Count 6.47 K/uL (4.8-10.8)
[2020-12-17 06:00] LABS: Calcium 8.6 mg/dl (8.5-10.1); Creatinine Clr Calc Pharmacy 93.5 ml/min; Est GFR (African American) 86.4 ml/min; Est GFR (Non-African American) 74.6 ml/min; Magnesium 2.3 mg/dl (1.8-2.4)
[2020-12-17] MEDS ORDERED: ALUMINUM/MAGNESIUM/SIMETH (MAALOX MAX) 30 ML UDC PO PRN (08:04)
[2020-12-17] MEDS ORDERED: NITROGLYCERIN SL 0.4 MG/TAB TAB SL PRN (08:05)
[2020-12-17] MEDS: DIGOXIN 0.125 MG TAB PO SCH (08:12)
[2020-12-17] MEDS: PANTOprazole 40 MG TAB PO SCH ×2 (08:12→20:36)
[2020-12-17] MEDS: AMOXICILLIN/CLAVULANATE 500 MG TAB PO SCH ×2 (08:12→17:55)
[2020-12-17] MEDS: lisinopril 40 MG TAB PO SCH (08:12)
[2020-12-17] MEDS: ISOSORBIDE MONO EXTENDED REL 30 MG TABCR PO SCH (08:12)
[2020-12-17] MEDS: TICAGRELOR 90 MG TAB PO SCH ×2 (08:12→20:36)
[2020-12-17] MEDS: ASPIRIN 81 MG ECTAB PO SCH (08:12)
[2020-12-17] MEDS: carvediloL 25 MG TAB PO SCH ×2 (08:13→20:37)
[2020-12-17] MEDS: ARIPiprazole 10 MG TAB PO SCH (08:13)
[2020-12-17] MEDS: amLODIPine BESYLATE 5 MG TAB PO SCH (08:13)
--- NOTE | 2020-12-17 08:26 | Electrocardiogram Report ---
Test Reason : Blood Pressure : / mmHG Vent. Rate : 083 BPM Atrial Rate : 083 BPM P-R Int : 164 ms QRS Dur : 082 ms QT Int : 350 ms P-R-T Axes : 051 016 031 degrees QTc Int : 411 ms Normal sinus rhythm Diffuse Nonspecific T wave abnormality Abnormal ECG When compared with ECG of 16-DEC-2020 05:59, No significant change Confirmed by Mike Brink ([id number]) on 12/17/2020 8:26:16 AM Referred By: [facility] Confirmed By:Mike Brink
[2020-12-17] MEDS ORDERED: FAMOTIDINE 20 MG in SYRINGE 3 ML IV ONE (08:30)
--- NOTE | 2020-12-17 09:36 | XRay Report ---
KUB CLINICAL HISTORY: Epigastric pain. COMPARISON STUDY: None. FINDINGS: Bowel gas pattern is normal. Left pelvic calcifications statistically reflect phleboliths. Visualized skeletal structures are unremarkable. No renal calculi are identified. IMPRESSION: No evidence for a bowel obstruction. ACT 112: Negative or not required by law. Electronically signed by: Raúl Gordon M.D. 12/17/2020 9:35 AM
--- NOTE | 2020-12-17 10:53 | Cardiology Progress Note ---
Date of Service December 17, 2020 Assessment & Plan (1) Chest pain: (2) CAD (coronary artery disease): (3) Hypertension: (4) Ischemic cardiomyopathy: (5) GERD (gastroesophageal reflux disease): The patient has a mood disorder and admits to having anxiety for which he takes Abilify. I believe some of the patient's symptoms are related to anxiety with a somatic component. Last night he said that he had visual losses and was sent for CT that was normal. He has atypical chest pain which is unlikely to be cardiac. Today while I was interviewing him he was complaining of shortness of breath even though he looked comfortable. He stated that every time he wears his mask he becomes short of breath which I believe may be anxiety related. I am going to have psychiatry see him to see if they can offer some suggestions. I think he can be transferred from the ICU to regular telemetry unit. Admission and Anticipated Discharge Date Admission Date: December 15, 2020 Subjective The patient looks comfortable but states he feels short of breath especially when he puts his mask on. Review of Systems Review of Systems: All systems reviewed & are unremarkable except as noted in Subjective Physical Exam Physical Exam: General: no acute distress and stated age Head: normocephalic, no masses, lesions, tenderness or abnormalities Eyes: conjunctiva are pink and non-injected, sclera clear Neck: supple, no adenopathy, no bruits, normal jugular venous pulse, no hepatojugular reflux Chest: normal shape and normal respiratory effort Lungs: clear to auscultation and percussion Cardiac Exam: - regular rate & rhythm, no murmurs gallops or rubs - normal S1, normal S2 Pulses: 2(+) throughout Abdomen: abdomen soft, non-tender, no abnormal masses and no hepatosplenomegaly Musculoskeletal: no gait disturbance, no joint inflammation, no deforming arthritis Extremities: no edema and no cyanosis Neuro: grossly normal exam Results & Data ([facility]) Vital Signs (Past 12 Hours) Vital Signs Temp Pulse Resp BP Pulse Ox 12/17/20 08:12 100 H 12/17/20 05:18 73 16 140/90 94 12/17/20 04:00 36.6 C 12/17/20 01:18 78 20 106/78 95 12/17/20 00:03 70 21 138/95 94 12/17/20 00:00 36.7 C 78 06/05/21 22:51 80 22 171/127 H 100 Laboratory Results Laboratory Results - last 24 hr 12/17/20 12/17/20 04:44 04:44 WBC 6.47 RBC 5.08 Hgb 15.4 Hct 44.4 MCV 87.4 MCH 30.3 MCHC 34.7 RDW Std Deviation 43.8 RDW Coeff of Janneth 13.6 Plt Count 203 MPV 10.3 Sodium 140 Potassium 4.0 Chloride 109 H Carbon Dioxide 28 Anion Gap 3.0 BUN 13 Creatinine 1.16 Est Cr Clr Drug Dosing 93.5 Est GFR ( Amer) 86.4 Est GFR (Non-Af Amer) 74.6 BUN/Creatinine Ratio 11.0 Glucose 104 H Calcium 8.6 Magnesium 2.3 Diagnostic Findings Echocardiogram reveals normal LV function without wall motion abnormalities. No evidence of ischemic cardiomyopathy. Medications Administered Current Inpatient Medications Acetaminophen (Acetaminophen 325 Mg Tab) 650 mg PO Q4H PRN PRN Reason: Pain or Fever Stop: 01/14/21 18:19 Last Admin: 12/16/20 13:57 Dose: 650 mg Documented by: Al Hydrox/Mg Hydrox/Simethicone (Aluminum/Magnesium/Simeth (Maalox Max) 30 Ml Udc) 15 ml PO Q6H PRN PRN Reason: Dyspepsia Stop: 01/16/21 08:03 Amlodipine Besylate (Amlodipine Besylate 5 Mg Tab) 10 mg PO [facility] Stop: 01/15/21 08:59 Last Admin: 12/17/20 08:13 Dose: 10 mg Documented by: Amoxicillin/Clavulanate Potassium (Amoxicillin/[facility]avulanate 500 Mg Tab) [facility] Protocol Stop: 12/23/20 11:14 Last Admin: 12/17/20 08:12 Dose: 1 tab Documented by: Aripiprazole (Aripiprazole 10 Mg Tab) 20 mg PO [facility] Stop: 01/15/21 08:59 Last Admin: 12/17/20 08:13 Dose: 20 mg Documented by: Aripiprazole (Aripiprazole 5 Mg Tab) 5 mg PO [facility] Stop: 01/14/21 20:59 Last Admin: 12/16/20 21:03 Dose: 5 mg Documented by: Aspirin (Aspirin 81 Mg Ectab) 81 mg PO [facility] Stop: 01/15/21 08:59 Last Admin: 12/17/20 08:12 Dose: 81 mg Documented by: Carvedilol (Carvedilol 25 Mg Tab) 50 mg PO BID [facility] Stop: 01/14/21 20:59 Last Admin: 12/17/20 08:13 Dose: 50 mg Documented by: Diphenhydramine HCl (Diphenhydramine Capsule 25 Mg Cap) 100 mg PO [facility] Stop: 01/14/21 20:59 Last Admin: 12/16/20 21:02 Dose: 100 mg Documented by: Duloxetine HCl (Duloxetine Hcl 30 Mg Cap) 30 mg PO [facility] Stop: 01/15/21 21:19 Last Admin: 12/16/20 21:33 Dose: 30 mg Documented by: Isosorbide Mononitrate (Isosorbide [place] Extended Rel 60 Mg Tabcr) 60 mg PO [facility] Stop: 01/16/21 10:44 Lisinopril (Lisinopril 40 Mg Tab) 40 mg PO [facility] Stop: 01/15/21 08:59 Last Admin: 12/17/20 08:12 Dose: 40 mg Documented by: Nitroglycerin (Nitroglycerin Sl 0.4 Mg/Tab Tab) 0.4 mg SL PRN PRN PRN Reason: Chest Pain Stop: 01/16/21 08:04 Pantoprazole Sodium (Pantoprazole 40 Mg Tab) 40 mg PO BID [facility]; Protocol Stop: 01/14/21 20:59 Last Admin: 12/17/20 08:12 Dose: 40 mg Documented by: Polyethylene Glycol (Polyethylene (Miralax) 17 Gm Pack) 17 gm PO DAILY PRN PRN Reason: Constipation Stop: 01/16/21 08:03 Rosuvastatin Calcium (Rosuvastatin Calcium 20 Mg Tab) 20 mg PO [facility] Stop: 01/14/21 20:59 Last Admin: 12/16/20 21:02 Dose: 20 mg Documented by: Sodium Chloride (Sodium Chloride 0.65% Na Soln 45 Ml ([place])) 1 sprays NA BID PRN PRN Reason: Dryness Stop: 01/15/21 08:33 Last Admin: 12/16/20 09:07 Dose: 1 sprays Documented by: Ticagrelor (Ticagrelor 90 Mg Tab) 90 mg PO BID [facility] Stop: 01/14/21 20:59 Last Admin: 12/17/20 08:12 Dose: 90 mg Documented by: Tramadol HCl (Tramadol Hcl 50 Mg Tablet) 25 - 50 mg PO Q4H PRN PRN Reason: Pain Stop: 01/15/21 22:25 Last Admin: 12/16/20 22:58 Dose: 50 mg Documented by: (1) Chest pain Chest pain type: unspecified Qualified Code(s): R07.9 - Chest pain, unspecified
[2020-12-17] MEDS: ISOSORBIDE MONO EXTENDED REL 60 MG TABCR PO SCH (11:50)
--- NOTE | 2020-12-17 14:42 | Hospitalist Progress Note ---
Date of Service December 17, 2020 Assessment & Plan (1) Chest pain: (2) CAD (coronary artery disease): Patient is a 45 yr male with H/O CAD s/p JAZZY stent x2 to CAD and 1 JAZZY to obtuse marginal in 12/22/2018, HTN, HLD, GERD, mood disorder presented to ER with complaint of progressive chest pain, SOB over past several months, worsening past week requiring 2 SL nitro twice day. Chest pain Rule out ACS H/O CAD S/P Stent -CXR:No acute process. -EKG: Diffuse nonspecific T wave abnormality. -Troponin: Negative -ECHO: Moderate concentric LVH. Left ventricular wall motion is normal. EF 60 to 65%. Grade 1 diastolic dysfunction. Right ventricle systolic function is normal. Continue Aspirin, Brillinta, carvedilol, isosorbide, lisinopril, rosuvastatin Appreciate cardiology input Isosorbide dose increased to 60mg daily GERD, anxiety could be contributing to the above symptoms as well Psychiatry consulted for input Acute bronchitis Chest x-ray as above Continue Augmentin (3) Hypertension: Hypertensive urgency Continue amlodipine, carvedilol,lisinopril Also on Isosorbide Monitor (4) Dyslipidemia: Lipid panel within normal limits Continue statin (5) Mood disorder: Continue Abilify, diphenhydramine Psychiatry consulted for Input (6) GERD (gastroesophageal reflux disease): Continue PPI DVT x SCDs Code Status Full Code Disposition [facility] Admission and Anticipated Discharge Date Admission Date: December 15, 2020 Subjective Patient is seen and examined at bedside States having chest discomfort earlier today which resolved with Pepcid Also states having dyspnea on exertion Less cough today Admits to having anxiety issues Offers no other complaints Denies nausea, vomiting, dizziness, abdominal pain Review of Systems Review of Systems: All systems reviewed & are unremarkable except as noted in HPI & below Physical Exam Physical Exam: Physical Exam: Vitals signs as noted above General Appearance:Moderately built and nourished, no apparent distress Head: normocephalic, Atraumatic Eyes: normal inspection, EOMI Neck: supple, Trachea midline Respiratory/Chest: Decreased breath sounds, CTA Cardiovascular: S1, S2, No murmur Abdomen/GI:Soft, Non tender, Bowel sounds present Extremities/Musculoskeletal:normal inspection, no edema Neurologic/Psych:AAOX3, grossly no focal neurological deficits Skin: normal color, warm Results & Data Results & Data ([facility]) Vital Signs (Past 12 Hours) Vital Signs Temp Pulse Resp BP Pulse Ox 12/17/20 13:18 36.7 C 79 15 143/79 H 95 12/17/20 13:00 81 18 96 12/17/20 12:00 36.7 C 12/17/20 09:18 93 H 17 165/89 H 96 12/17/20 08:36 90 13 159/127 H 98 12/17/20 08:30 36.7 C 12/17/20 08:12 100 H 12/17/20 08:00 36.7 C 75 12/17/20 05:18 73 16 140/90 94 12/17/20 04:00 36.6 C Laboratory Results Short CBC 12/17/20 Range/Units 04:44 WBC 6.47 (4.8-10.8) K/uL Hgb 15.4 (14.0-18.0) g/dL Hct 44.4 (42-52) % Plt Count 203 (130-400) K/uL BMP 12/17/20 04:44 Sodium 140 Potassium 4.0 Chloride 109 H Carbon Dioxide 28 BUN 13 Creatinine 1.16 Glucose 104 H Calcium 8.6 (1) Chest pain Chest pain type: unspecified Qualified Code(s): R07.9 - Chest pain, unspeci fied
--- NOTE | 2020-12-17 15:07 | Psychiatric Consultation ---
Date of Consultation December 17, 2020 Impression / Recommendations Impression 45-year-old single -[place]e male with a significant history of mood disorder and anxiety in the past bipolar depression per patient admitted with significant anxiety in the context of coronary artery disease and some ongoing stressors especially his current incarceration. (1) Mood disorder: Patient with occasional thoughts of suicide and a plan to swallow razor however today he denies suicidal ideation he does admit that his mood tends to fluctuate depends on the circumstances and he seems to be associated with frustration would continue his Abilify dose consider decreasing Abilify to about 10 mg daily . Can take in am. No clear psychotic symptoms noted may benefit from a lower dose. Would increase duloxetine patient reports having taken high doses in the past currently is documented for 30 mg will increase to 30 mg twice daily as this will also help with pain management per patient consider increasing to 90 mg given his mood and anxiety. Present on Admission?: Yes (2) Anxiety disorder: Would consider increase duloxetine from 30 mg to 60 mg total with a plan after 5 days increase to 90 mg to assist with mood. I agree with plans add a beta-maricruz patient is also amenable giving that a be ta-maricruz will help with his chronic anxiety at the same time as his blood pressure and this can also help with his cardiac condition agree with using a beta-maricruz preferably propanolol for anxiety as this will help with his anxiety dosing guidelines will be up to cardiology. Patient can start anywhere from 20 mg daily to 60 mg daily may be better in divided doses to assist with a nxiety Present on Admission?: Yes Inventory Assets Strengths: Patient is verbal and able to make his concerns known Needs: Therapy and ongoing medication management when discharged back to [facility] Risk Factors Assessment Male: Yes : No Do You Have Access To A Gun?: No Substance Use Disorders: No Previous Attempt: No Protective Factors Assessment Employed: No Good Rapport with Provider: Yes Psych History Identifying Data Patient is 45 y/o [facility] inmate, with a history of anxiety and depression and use of poor multiple past psychotropic medications, with additional PMH CAD s/p JAZZY stent x2 to CAD and 1 JAZZY to obtuse marginal in 12/22/2018, HTN, HLD, and GERD, presented to ER with complaint of progressive chest pain. Chief Complaint "I sometimes get worried and especially when things are not going right, I can feel it you know I can feel it inside, I have been anxious for over 20 years and 3 days ago it just got to me". History of Present Illness Patient is 45 y/o [facility] inmate, seen in the presence of corrections staff, with a history of anxiety and depression and use of multiple past psychotropic medications, with additional PMH CAD s/p JAZZY stent x2 to CAD and 1 JAZZY to obtuse marginal in 12/22/2018, HTN, HLD, and GERD, presented to ER with complaint of progressive chest pain. Patient reports 20+ year history of anxiety and depression. Has served 21 years of his total sentence and [facility] his current [facility] 11 years patient reports anxiety started 20 years ago when his father he has been in [facility] since age of 23. He reports multiple medications with little effectiveness. Major stressors to his current episode of anxiety and chest pain started 3 days ago when he reported in "shake down in his cell" here he reported that this has been very frustrating he is also been trying to get an appeal for his case in court, and reports being frustrated at the at the pace of the appeal he also reports intense frustration and anger with his family because they have not come to visit past 21 years despite multiple promises. Patient reports for the most part mood is stable but tends to fluctuate when his situation around him fluctuates. "There is always somebody in [facility] you do not get along with that can bring a day down" patient denies manic symptoms but does report a lot of irritability depending on his situation. Patient also reports increasing anxiety symptoms increasing heart rate depending on also his situation. He does admit to panic symptoms depending on if he is upset with something Patient admits to occasionally having thoughts of and suicide sometimes "I think I might as well just go ahead and swallowed a razor" patient admits however he does have things to live for he enjoys going to the [employer] he also has a mormonism group and he reports his mormonism people have helped him in the past even bought him a TV. He denies current suicidal thoughts he said these thoughts come and go not having them currently no suicidal plans no homicidal plans. There is no evidenc e of response to internal stimuli at this time Past Psychiatric History Previous Psych History: Medications in the past including Seroquel Cymbalta Depakote Celexa Haldol Thorazine and Cogentin and Depakote. Current Psychiatric Diagnosis: Mood disorder unspecified anxiety disorder Outpatient Services: Has been in [facility] for the past 21 years however patient does report going to rehab and outpatient treatment in the past Previous Psych Admissions: Admitted in [facility]. Do You Have Access To A Gun?: No History of Previous Suicide Attempt: No Past Medication Trials: Multiple past medication trials including Celexa Prozac Zoloft Depakote Haldol Thorazine unknown doses Allergies Allergy/AdvReac Type Severity Reaction Status Date / Time No Known Allergies Allergy Verified 12/16/20 08:50 Home Medications Medication Instructions Recorded Confirmed Type carvedilol 50 mg PO BID 12/22/18 12/15/20 History diphenhydramine HCl 100 mg PO HS 12/22/18 12/15/20 History lisinopril 40 mg PO QAM 12/22/18 12/15/20 History amlodipine 10 mg PO QAM 12/15/20 12/15/20 History aripiprazole [Abilify] 5 mg PO HS 12/15/20 12/15/20 History aripiprazole [Abilify] 20 mg PO QAM 12/15/20 12/15/20 History aspirin 81 mg PO QAM 12/15/20 12/15/20 History celecoxib [Celebrex] 200 mg PO BID 12/15/20 12/15/20 History digoxin 125 mcg PO QAM 12/15/20 12/15/20 History duloxetine See Rx Instructions .ROUTE .COMPLEX 12/15/20 12/15/20 History isosorbide mononitrate 30 mg PO QAM 12/15/20 12/15/20 History nitroglycerin [Nitrostat] 0.4 mg SUBLINGUAL DIRECTED PRN 12/15/20 12/15/20 History omeprazole 20 mg PO BID 12/15/20 12/15/20 History rosuvastatin 20 mg PO HS 12/15/20 12/15/20 History ticagrelor [Brilinta] 90 mg PO BID 12/15/20 12/15/20 History Family History Significant for father who of an [place], mother known to be an alcoholic per patient brother who recently also had a heart attack per patient Substance Abuse History Use of malt liquor, however has been in [facility] for 21 years Personal History Living Arrangements Comments: Incarcerated past 21 years Born In: [place] grew up mainly in [place] Highest Grade Completed: G.E.D. Employment Status: Unemployed Marital Status: Single Beliefs That Will Affect Care: None History of Legal Problems: Currently incarcerated 21 years serving a life sentence, patient reports trying to work on his appeal. Psychological Trauma History Comment: Incarceration past 21 years Patient History Medical History CAD (coronary artery disease) Dyslipidemia GERD (gastroesophageal reflux disease) GERD (gastroesophageal reflux disease) Hypertension Mood disorder Surgical History H/O removal of cyst History of cardiac cath 12/22/2018 [facility] 2 JAZZY to LAD and 1 JAZZY to obtuse marginal, [facility] Family History Father Myocardial infarction Brother Myocardial infarction Other Diabetes Social History Smoking Status: Current some day smoker Second Hand Exposure: No; Do You Dip or Chew Tobacco: No; Tobacco Cessation Education Requested by Patient: No Hx Alcohol Use: No Hx Substance Use: No Preferred Language: Telugu Communication Ability: Effective Data Entry Representative Required: No Beliefs That Will Affect Care: None marital status: Unknown Current Living Situation: Other Current Living Situation Comment: [place] Other Information That Helps Us Care for You: No Feels Safe at Home: Yes Assistive Devices: Glasses Physical Exam Psychiatric: Orientation: alert, oriented x 3, oriented to person, oriented to place, oriented to time and cooperative Apperance: appropriately groomed Eye Contact: good eye contact Motor Behavior: no abnormal motor movements Speech: normal rate/rhythm/volume of speech Affect: + anxious affect and + irritable affect "Patient's affect became full during the conversation. Mood: + anxious mood Thought Process: goal directed thought process and linear/logical thought process Thought Content: reality based without delusions and + guilt Some occasional feelings of being targeted however given his environment may not be an unrealistic view Suicidal Thoughts: denies suicidal thoughts and denies suicidal plan Homicidal Thoughts: denies homicidal thoughts and denies homicidal plan Hallucinations: no auditory hallucinations, no visual hallucinations and no tactile hallucinations Cognition: recent memory grossly intact Estimated Intelligence: consistent with education level Insight: + fair insight Judgement: + fair judgement Vital Signs (Past 24 Hours): Last Vital Signs Temp 36.7 C 12/17/20 13:18 Pulse 79 12/17/20 13:18 Resp 15 12/17/20 13:18 BP 143/79 H 12/17/20 13:18 Pulse Ox 95 12/17/20 13:18 Physical Examination: Physical exam done by Dr. Fam on fall has been reviewed and for the purposes of this evaluation is considered accurate and sufficient. Results & Data ([facility]) Medications Administered Acetaminophen (Acetaminophen 325 Mg Tab) 650 mg PO Q4H PRN PRN Reason: Pain or Fever Stop: 01/14/21 18:19 Last Admin: 12/16/20 13:57 Dose: 650 mg Documented by: [id number] Amlodipine Besylate (A[facility]odipine Besylate 5 Mg Tab) [facility] Stop: 01/15/21 08:59 Last Admin: 12/17/20 08:13 Dose: 10 mg Documented by: [id number] Admin: 12/16/20 09:01 Dose: 10 mg Documented by: [id number] Amoxicillin/Clavulanate Potassium (Amoxicillin/Clavulanate 500 Mg Tab) 1 tab PO BIDM [facility]; Protocol Stop: 12/23/20 11:14 Last Admin: 12/17/20 08:12 Dose: 1 tab Documented by: [id number] Admin: 12/16/20 16:57 Dose: 1 tab Documented by: [id number] Admin: 12/16/20 12:51 Dose: 1 tab Documented by: [id number] Aripiprazole (Aripiprazole 10 Mg Tab) 20 mg PO [facility] Stop: 01/15/21 08:59 Last Admin: 12/17/20 08:13 Dose: 20 mg Documented by: [id number] Admin: 12/16/20 09:02 Dose: 20 mg Documented by: [id number] Aripiprazole (Aripiprazole 5 Mg Tab) 5 mg PO [facility] Stop: 01/14/21 20:59 Last Admin: 12/16/20 21:03 Dose: 5 mg Documented by: [id number] Admin: 12/15/20 21:03 Dose: 5 mg Documented by: [id number] Aspirin (Aspirin 81 Mg Ectab) [facility] Stop: 01/15/21 08:59 Last Admin: 12/17/20 08:12 Dose: 81 mg Documented by: [id number] Admin: 12/16/20 09:01 Dose: 81 mg Documented by: [id number] Carvedilol (Carvedilol 25 Mg Tab) 50 mg PO BID [facility] Stop: 01/14/21 20:59 Last Admin: 12/17/20 08:13 Dose: 50 mg Documented by: [id number] Admin: 12/16/20 21:03 Dose: 50 mg Documented by: [id number] Admin: 12/16/20 09:03 Dose: 50 mg Documented by: [id number] Admin: 12/15/20 21:03 Dose: 50 mg Documented by: [id number] Diphenhydramine HCl (Diphenhydramine Capsule 25 Mg Cap) 100 mg PO [facility] Stop: 01/14/21 20:59 Last Admin: 12/16/20 21:02 Dose: 100 mg Documented by: [id number] Admin: 12/15/20 21:03 Dose: 100 mg Documented by: [id number] Duloxetine HCl (Duloxetine Hcl 30 Mg Cap) 30 mg PO [facility] Stop: 01/15/21 21:19 Last Admin: 12/16/20 21:33 Dose: 30 mg Documented by: [id number] Isosorbide Mononitrate (Isosorbide Sharkey Extended Rel 60 Mg Tabcr) 60 mg PO [facility] Stop: 01/16/21 10:44 Last Admin: 12/17/20 11:50 Dose: 60 mg Documented by: [id number] Lisinopril (Lisinopril 40 Mg Tab) 40 mg PO [facility] Stop: 01/15/21 08:59 Last Admin: 12/17/20 08:12 Dose: 40 mg Documented by: [id number] Admin: 12/16/20 09:02 Dose: 40 mg Documented by: [id number] Pantoprazole Sodium (Pantoprazole 40 Mg Tab) 40 mg PO BID [facility]; Protocol Stop: 01/14/21 20:59 Last Admin: 12/17/20 08:12 Dose: 40 mg Documented by: [id number] Admin: 12/16/20 21:02 Dose: 40 mg Documented by: [id number] Admin: 12/16/20 09:03 Dose: 40 mg Documented by: [id number] Admin: 12/15/20 21:04 Dose: 40 mg Documented by: [id number] Rosuvastatin Calcium (Rosuvastatin Calcium 20 Mg Tab) 20 mg PO HS [facility] Stop: 01/14/21 20:59 Last Admin: 12/16/20 21:02 Dose: 20 mg Documented by: [id number] Admin: 12/15/20 21:04 Dose: 20 mg Documented by: [id number] Sodium Chloride (Sodium Chloride 0.65% Na Soln 45 Ml ([place])) 1 sprays NA BID PRN PRN Reason: Dryness Stop: 01/15/21 08:33 Last Admin: 12/16/20 09:07 Dose: 1 sprays Documented by: [id number] Ticagrelor (Ticagrelor 90 Mg Tab) 90 mg PO BID [facility] Stop: 01/14/21 20:59 Last Admin: 12/17/20 08:12 Dose: 90 mg Documented by: [id number] Admin: 12/16/20 21:02 Dose: 90 mg Documented by: [id number] Admin: 12/16/20 09:03 Dose: 90 mg Documented by: [id number] Admin: 12/15/20 21:04 Dose: 90 mg Documented by: [id number] Tramadol HCl (Tramadol Hcl 50 Mg Tablet) 25 - 50 mg PO Q4H PRN PRN Reason: Pain Stop: 01/15/21 22:25 Last Admin: 12/16/20 22:58 Dose: 50 mg Documented by: [id number] Coding Level of Care Code 37794 U Intl Hosp Care Lvl 2 Diagnoses Mood disorder F39 Anxiety disorder F41.9
[2020-12-17] MEDS: traMADol HCL 50 MG TABLET PO PRN (18:18)
[2020-12-17] MEDS: POLYETHYLENE (MIRALAX) 17 GM PACK PO PRN (18:30)
[2020-12-17] MEDS: diphenhydrAMINE Capsule 25 MG CAP PO SCH (20:36)
[2020-12-17] MEDS: FAMOTIDINE 10 MG TABLET PO SCH (20:36)
[2020-12-17] MEDS: DULoxetine HCL 30 MG CAP PO SCH (20:36)
[2020-12-17] MEDS: ARIPiprazole 5 MG TAB PO SCH (20:37)
[2020-12-17] MEDS: ROSUVASTATIN CALCIUM 20 MG TAB PO SCH (20:37)
[2020-12-18] MEDS: traMADol HCL 50 MG TABLET PO PRN ×2 (07:54→15:35)
[2020-12-18] MEDS: POLYETHYLENE (MIRALAX) 17 GM PACK PO PRN (07:54)
[2020-12-18] MEDS: AMOXICILLIN/CLAVULANATE 500 MG TAB PO SCH ×2 (07:55→16:45)
[2020-12-18] MEDS: carvediloL 25 MG TAB PO SCH (07:55)
[2020-12-18] MEDS: FAMOTIDINE 10 MG TABLET PO SCH (07:55)
[2020-12-18] MEDS: amLODIPine BESYLATE 5 MG TAB PO SCH (07:56)
[2020-12-18] MEDS: ASPIRIN 81 MG ECTAB PO SCH (07:57)
[2020-12-18] MEDS: DULoxetine HCL 30 MG CAP PO SCH (07:58)
[2020-12-18] MEDS: ISOSORBIDE MONO EXTENDED REL 60 MG TABCR PO SCH (07:58)
[2020-12-18] MEDS: TICAGRELOR 90 MG TAB PO SCH (07:58)
[2020-12-18] MEDS: PANTOprazole 40 MG TAB PO SCH (07:58)
[2020-12-18] MEDS: lisinopril 40 MG TAB PO SCH (07:58)
[2020-12-18] MEDS ORDERED: hydrALAZINE 10 MG TAB PO PRN (08:32)
[2020-12-18] MEDS ORDERED: ARIPiprazole 10 MG TAB PO SCH (09:00)
[2020-12-18 10:00] LABS: BUN Creatinine Ratio 11.4 (10-20); Calcium 9.3 mg/dl (8.5-10.1); Creatinine Clr Calc Pharmacy 81.2 ml/min; Est GFR (Non-African American) 65.6 ml/min; Magnesium 2.2 mg/dl (1.8-2.4); Potassium 3.9 mmol/L (3.5-5.1)
--- NOTE | 2020-12-18 12:39 | Communication Note ---
Date of Service: December 18, 2020 Information obtained from patient and liaison confirm patients outpatient dose of Cymbalta as 90mg daily Would suggest increase to 120mg daily as 60mg BID would help with anxiety and mood given he feels 90mg has "helped some" and reports they also help his pain Will review patient today
--- NOTE | 2020-12-18 14:00 | Cardiology Progress Note ---
Date of Service December 18, 2020 Assessment & Plan (1) Chest pain: (2) CAD (coronary artery disease): (3) Hypertension: (4) Ischemic cardiomyopathy: (5) GERD (gastroesophageal reflux disease): Psychiatry's help appreciated. The patient feels much improved with the adjustments. His blood pressure is markedly improved today. I do not believe any additional cardiac testing or work-up is indicated. Patient can be discharged per internal medicine. Admission and Anticipated Discharge Date Admission Date: December 15, 2020 Subjective The patient feels improved since his psychiatric meds have been adjusted. Review of Systems Review of Systems: All systems reviewed & are unremarkable except as noted in Subjective Physical Exam Physical Exam: General: no acute distress and stated age Head: normocephalic, no masses, lesions, tenderness or abnormalities Eyes: conjunctiva are pink and non-injected, sclera clear Neck: supple, no adenopathy, no bruits, normal jugular venous pulse, no hepatojugular reflux Chest: normal shape and normal respiratory effort Lungs: clear to auscultation and percussion Cardiac Exam: - regular rate & rhythm, no murmurs gallops or rubs - normal S1, normal S2 Pulses: 2(+) throughout Abdomen: abdomen soft, non-tender, no abnormal masses and no hepatosplenomegaly Musculoskeletal: no gait disturbance, no joint inflammation, no deforming arthritis Extremities: no edema and no cyanosis Neuro: grossly normal exam Results & Data ([facility]) Vital Signs (Past 12 Hours) Vital Signs Temp Pulse Pulse Resp BP BP Pulse Ox 12/18/20 13:33 77 128/78 12/18/20 11:20 36.7 C 93 H 18 129/75 94 12/18/20 11:14 138/78 12/18/20 09:00 83 150/110 H 12/18/20 08:00 81 12/18/20 07:49 36.7 C 93 H 18 167/125 H 94 12/18/20 04:00 36.6 C 72 18 143/85 H 98 Laboratory Results Laboratory Results - last 24 hr 12/17/20 12/18/20 16:43 09:18 Sodium 137 Potassium 3.9 Chloride 106 Carbon Dioxide 24 Anion Gap 7.0 BUN 15 Creatinine 1.29 Est Cr Clr Drug Dosing 81.2 Est GFR ( Amer) 76.0 Est GFR (Non-Af Amer) 65.6 BUN/Creatinine Ratio 11.4 Glucose 222 H POC Glucose 97 Calcium 9.3 Magnesium 2.2 Medications Administered Current Inpatient Medications Acetaminophen (Acetaminophen 325 Mg Tab) 650 mg PO Q4H PRN PRN Reason: Pain or Fever Stop: 01/14/21 18:19 Last Admin: 12/16/20 13:57 Dose: 650 mg Documented by: Al Hydrox/Mg Hydrox/Simethicone (Aluminum/Magnesium/Simeth (Maalox Max) 30 Ml Udc) 15 ml PO Q6H PRN PRN Reason: Dyspepsia Stop: 01/16/21 08:03 Last Admin: 12/17/20 15:49 Dose: 15 ml Documented by: Amlodipine Besylate (Amlodipine Besylate 5 Mg Tab) 10 mg PO [facility] Stop: 01/15/21 08:59 Last Admin: 12/18/20 07:56 Dose: 10 mg Documented by: Amoxicillin/Clavulanate Potassium (Amoxicillin/Clavulanate 500 Mg Tab) 1 tab PO BIDM [facility]; Protocol Stop: 12/23/20 11:14 Last Admin: 12/18/20 07:55 Dose: 1 tab Documented by: Aripiprazole (Aripiprazole 5 Mg Tab) [address] [facility] Stop: 01/14/21 20:59 Last Admin: 12/17/20 20:37 Dose: 5 mg Documented by: Aripiprazole (Aripiprazole 10 Mg Tab) 10 mg PO [facility] Stop: 01/17/21 08:59 Last Admin: 12/18/20 07:55 Dose: 10 mg Documented by: Aspirin (Aspirin 81 Mg Ectab) 81 mg PO [facility] Stop: 01/15/21 08:59 Last Admin: 12/18/20 07:57 Dose: 81 mg Documented by: Carvedilol (Carvedilol 25 Mg Tab) 50 mg PO BID [facility] Stop: 01/14/21 20:59 Last Admin: 12/18/20 07:55 Dose: 50 mg Documented by: Diphenhydramine HCl (Diphenhydramine Capsule 25 Mg Cap) [address] [facility] Stop: 01/14/21 20:59 Last Admin: 12/17/20 20:36 Dose: 100 mg Documented by: Duloxetine HCl (Duloxetine Hcl 30 Mg Cap) 30 mg PO BID [facility] Stop: 01/16/21 20:59 Last Admin: 12/18/20 07:58 Dose: 30 mg Documented by: Famotidine (Famotidine 10 Mg Tablet) 10 mg PO BID [facility] Stop: 01/16/21 20:59 Last Admin: 12/18/20 07:55 Dose: 10 mg Documented by: Hydralazine HCl (Hydralazine 10 Mg Tab) 10 mg PO Q6H PRN PRN Reason: Hypertension Stop: 01/17/21 08:44 Isosorbide Mononitrate (Isosorbide [place] Extended Rel 60 Mg Tabcr) [facility] Stop: 01/16/21 10:44 Last Admin: 12/18/20 07:58 Dose: 60 mg Documented by: Lisinopril (Lisinopril 40 Mg Tab) 40 mg PO [facility] Stop: 01/15/21 08:59 Last Admin: 12/18/20 07:58 Dose: 40 mg Documented by: Nitroglycerin (Nitroglycerin Sl 0.4 Mg/Tab Tab) 0.4 mg SL PRN PRN PRN Reason: Chest Pain Stop: 01/16/21 08:04 Pantoprazole Sodium (Pantoprazole 40 Mg Tab) 40 mg PO BID [facility]; Protocol Stop: 01/14/21 20:59 Last Admin: 12/18/20 07:58 Dose: 40 mg Documented by: Polyethylene Glycol (Polyethylene (Miralax) 17 Gm Pack) 17 gm PO DAILY PRN PRN Reason: Constipation Stop: 01/16/21 08:03 Last Admin: 12/18/20 07:54 Dose: 17 gm Documented by: Rosuvastatin Calcium (Rosuvastatin Calcium 20 Mg Tab) [address] [facility] Stop: 01/14/21 20:59 Last Admin: 12/17/20 20:37 Dose: 20 mg Documented by: Sodium Chloride (Sodium Chloride 0.65% Na Soln 45 Ml ([place])) 1 sprays NA BID PRN PRN Reason: Dryness Stop: 01/15/21 08:33 Last Admin: 12/16/20 09:07 Dose: 1 sprays Documented by: Ticagrelor (Ticagrelor 90 Mg Tab) 90 mg PO BID [facility] Stop: 01/14/21 20:59 Last Admin: 12/18/20 07:58 Dose: 90 mg Documented by: Tramadol HCl (Tramadol Hcl 50 Mg Tablet) 25 - 50 mg PO Q4H PRN PRN Reason: Pain Stop: 01/15/21 22:25 Last Admin: 12/18/20 07:54 Dose: 50 mg Documented by: (1) Chest pain Chest pain type: unspecified Qualified Code(s): R07.9 - Chest pain, unspecified
--- NOTE | 2020-12-18 14:25 | Hospitalist Progress Note ---
Date of Service December 18, 2020 Assessment & Plan (1) Chest pain: (2) CAD (coronary artery disease): Patient is a 45 yr male with H/O CAD s/p JAZZY stent x2 to CAD and 1 JAZZY to obtuse marginal in 12/22/2018, HTN, HLD, GERD, mood disorder presented to ER with complaint of progressive chest pain, SOB over past several months, worsening past week requiring 2 SL nitro twice day. Chest pain Rule out ACS H/O CAD S/P Stent -CXR:No acute process. -EKG: Diffuse nonspecific T wave abnormality. -Troponin: Negative -ECHO: Moderate concentric LVH. Left ventricular wall motion is normal. EF 60 to 65%. Grade 1 diastolic dysfunction. Right ventricle systolic function is normal. Continue Aspirin, Brillinta, carvedilol, isosorbide, lisinopril, rosuvastatin Appreciate cardiology input Isosorbide dose increased to 60mg daily GERD, anxiety could be contributing to the above symptoms as well Appreciate Psychiatry Input Acute bronchitis Chest x-ray as above Continue Augmentin Day #3 (3) Hypertension: Hypertensive urgency Continue amlodipine, carvedilol,lisinopril Also on Isosorbide Monitor (4) Dyslipidemia: Lipid panel within normal limits Continue statin (5) Mood disorder: Duloxetine dose increased to 120 mg daily (previously on 90 mg daily) Abilify dose decreased from 20 mg to 10 mg in the morning. Continue 5 mg at bedtime Appreciate psychiatry input (6) GERD (gastroesophageal reflux disease): Continue PPI DVT x SCDs Code Status Full Code Disposition [facility] Admission and Anticipated Discharge Date Admission Date: December 15, 2020 Subjective Patient is seen and examined at bedside Patient states having any transient anxiety earlier today which resolved Cough continues to improve Denies nausea, vomiting, dizziness, abdominal pain Discussed with Cardiology today Review of Systems Review of Systems: All systems reviewed & are unremarkable except as noted in HPI & below Physical Exam Physical Exam: Physical Exam: Vitals signs as noted above General Appearance:Moderately built and nourished, no apparent distress Head: normocephalic, Atraumatic Eyes: normal inspection, EOMI Neck: supple, Trachea midline Respiratory/Chest: Decreased breath sounds, CTA Cardiovascular: S1, S2, No murmur Abdomen/GI:Soft, Non tender, Bowel sounds present Extremities/Musculoskeletal:normal inspection, no edema Neurologic/Psych:AAOX3, grossly no focal neurological deficits Skin: normal color, warm Results & Data Results & Data ([facility]) Vital Signs (Past 12 Hours) Vital Signs Temp Pulse Pulse Resp BP BP Pulse Ox 12/18/20 13:33 77 128/78 12/18/20 11:20 36.7 C 93 H 18 129/75 94 12/18/20 11:14 138/78 12/18/20 09:00 83 150/110 H 12/18/20 08:00 81 12/18/20 07:49 36.7 C 93 H 18 167/125 H 94 12/18/20 04:00 36.6 C 72 18 143/85 H 98 Laboratory Results [facility] 12/18/20 09:18 Sodium 137 Potassium 3.9 Chloride 106 Carbon Dioxide 24 BUN 15 Creatinine 1.29 Glucose 222 H Calcium 9.3 (1) Chest pain Chest pain type: unspecified Qualified Code(s): R07.9 - Chest pain, unspecified
--- NOTE | 2020-12-18 14:35 | Discharge Summary ---
Date of Service December 18, 2020 Admission HPI Per Admitting Provider Pt is 45 y/o M with PMH CAD s/p JAZZY stent x2 to CAD and 1 JAZZY to obtuse marginal in 12/22/2018, HTN, HLD, GERD, mood disorder presented to ER with complaint of progressive chest pain. Patient states since his stent placement in 2019 he has intermittent left-sided chest pain with radiation to left arm which occurs approximately twice a week and he uses 1 sublingual nitroglycerin with relief. CP can occur at rest or with exertion. States over the past 2 months has noticed increased symptoms occurring more frequently in the past week has been needing to use 2 sublingual nitroglycerin a day secondary to left-sided chest pain with radiation to left arm and left arm tingling. He also reports worsening shortness of breath over the past several months with exertion. Reports has some night awakenings waking up with shortness of breath and gasping for air. C/O intermittent palpitations not associated with CP. Also reports nonproductive cough. Denies any lower extremity edema. He reports his blood pressures have been running high over the past several months and denies any medication changes. Pt reports chronic dizziness that he relates to his medications, denies any changes from baseline. Denies fever/chills, diaphoresis, N/V/D/C, TRIPLETT, syncope, vision changes, neck pain, sore throat, choking, otalgia, rhinorrhea, abdominal pain, paresthesias, weakness, extremity weakness, rashes, urinary symptoms. Was given 324mg ASA prior to arrival in ER. In ER pt given 1 SL nitro with resolution of CP. Negative initial troponin. EKG with T wave flattening lateral leads, compared to EKG in 2019 no further T wave inversion anterior leads. Will be admitted for further evaluation. Admission Exam Per Admitting Provider Physical Exam Physical Exam: General: no distress, obese Head: normocephalic, atraumatic Eyes: PERRL, EOM's intact, conjunctiva non-injected, anicteric ENT: normal inspection external ears, nose, mucous membranes moist Neck: supple, trachea midline Lungs: clear, no respiratory distress, no wheezing/rhonchi/rales CV: RRR, no murmur, no pretibial edema Abd: normal BS, soft, non-tender Ext: no cyanosis, no calf tenderness Neuro: A&O x 3, no focal deficits noted, normal affect Skin: warm, dry Principal Diagnosis Chest pain Mood disorder Acute bronchitis Hypertension Discharge Data Allergies Allergy/AdvReac Type Severity Reaction Status Date / Time No Known Allergies Allergy Verified 12/16/20 08:50 Consultations 12/15/20 14:41 ED Decision to Admit Stat 12/15/20 18:20 Consult Cardiology Routine 12/17/20 10:42 Consult Psychiatry Routine Procedures Performed CXR:No acute process. CT head: No acute intracranial abnormality. KUB: No evidence for a bowel obstruction. Ordered Studies 12/16/20 22:23 CT head/brain wo con Stat Hospital Course (1) Chest pain: (2) CAD (coronary artery disease): Patient is a 45 yr male with H/O CAD s/p JAZZY stent x2 to CAD and 1 JAZZY to obtuse marginal in 12/22/2018, HTN, HLD, GERD, mood disorder presented to ER with complaint of progressive chest pain, SOB over past several months, worsening past week requiring 2 SL nitro twice day. Chest pain Rule out ACS H/O CAD S/P Stent -CXR:No acute process. -EKG: Diffuse nonspecific T wave abnormality. -Troponin: Negative -ECHO: Moderate concentric LVH. Left ventricular wall motion is normal. EF 60 to 65%. Grade 1 diastolic dysfunction. Right ventricle systolic function is normal. Continue Aspirin, Brillinta, carvedilol, isosorbide, lisinopril, rosuvastatin Appreciate cardiology input Isosorbide dose increased to 60mg daily GERD, anxiety could be contributing to the above symptoms as well Appreciate Psychiatry Input Acute bronchitis Chest x-ray as above Continue Augmentin Day #3 (3) Hypertension: Hypertensive urgency Continue amlodipine, carvedilol,lisinopril Also on Isosorbide Monitor (4) Dyslipidemia: Lipid panel within normal limits Continue statin (5) Mood disorder: Duloxetine dose increased to 120 mg daily (previously on 90 mg daily) Abilify dose decreased from 20 mg to 10 mg in the morning. Continue 5 mg at bedtime Appreciate psychiatry input (6) GERD (gastroesophageal reflux disease): Continue PPI DVT x SCDs Code Status Full Code Disposition [facility] Total Time Total Time Spent Total Time Spent (In Minutes): 40 minutes Total Time Includes: Examination of the Patient, Discharge Planning, Medication Reconciliation, Communication With Other Providers and Other Discharge Plan Discharge Items [facility]position[facility] Reason For Visit: CHEST PAIN Discharge Diagnosis: Chest pain Mood disorder Acute bronchitis Hypertension Activity: Resume your previous activity Exercise/Sports: Gradually increase as tolerated Non-emergency contact: Primary Care Provider and Psychiatrist Call non-emergency contact if: you have any medication questions, your symptoms worsen, your pain is not controlled, your pain is concerning for you and you have a fever Follow-up/Referrals: Hema ADEN [Primary Care Provider] - Diet: Heart Healthy Addtl Attending Provider Instructions: Follow-up with your physician at correctional facility for further management. Seek immediate medical attention if your symptoms reoccur or worsen Pending Studies at Discharge: No Stand-Alone Forms: My [facility] Skilled Items Patient informed of condition?: Yes Discharge Level of Care: Other Communicable Disease: No Discharge Prognosis: Stable Lines: None Urinary Catheter: No Medications and DC Order Prescriptions: New famotidine [Acid Professional Architect (famotidine)] 10 mg Tablet 10 mg PO BID Qty: 60 RF: 0 amoxicillin-pot clavulanate 500-125 mg Tablet 1 tab PO BIDM Qty: 5 RF: 0 Continued carvedilol 25 mg Tablet 50 mg PO BID RF: 0 diphenhydramine HCl 50 mg Capsule 100 mg PO HS RF: 0 lisinopril 40 mg Tablet 40 mg PO QAM RF: 0 aspirin 81 mg Tablet,Delayed Release (Dr/Ec) 81 mg PO QAM RF: 0 amlodipine 10 mg Tablet 10 mg PO QAM RF: 0 nitroglycerin [Nitrostat] 0.4 mg Tablet, Sublingual 0.4 mg sublingual DIRECTED PRN (Reason: Chest Pain) RF: 0 digoxin 125 mcg (0.125 mg) Tablet 125 mcg PO QAM RF: 0 aripiprazole [Abilify] 5 mg Tablet 5 mg PO HS RF: 0 rosuvastatin 20 mg Tablet 20 mg PO HS RF: 0 omeprazole 20 mg Tablet,Delayed Release (Dr/Ec) 20 mg PO BID RF: 0 Brilinta 90 mg Tablet 90 mg PO BID RF: 0 Changed isosorbide mononitrate 30 mg Tablet Extended Release 24 Hr 60 mg PO QAM Qty: 0 RF: 0 aripiprazole [Abilify] 20 mg Tablet 10 mg PO QAM Qty: 0 RF: 0 duloxetine 30 mg Capsule,Delayed Release(Dr/Ec) 60 mg PO BID Qty: 0 RF: 0 Discontinued celecoxib [Celebrex] 200 mg Capsule 200 mg PO BID RF: 0 Discharge Orders: Discharge Order (Routine); Ordered 12/18/20 Ordered By: Waldemar Olson Admission Data Admit Date/Time: 12/15/20 15:05 Attending Provider: Waldemar Olson Admit Provider: Rosalinda Fam Primary Care Provider: Hema ADEN Other Providers: Rosalinda Fam ; Murphy Pablo ; Juliana Banks ; Dr Dino ; Doris Liao ; Maulik Soares Other Interventions: Discharge Summary Assessment (RN) Last Done: 12/18/20 15:27
[2020-12-18] MEDS ORDERED: DULoxetine HCL 60 MG CAP PO SCH (21:00)
--- NOTE | 2021-01-02 06:59 | Coding Letter ---
CODING QUERY To promote full compliance with coding requirements relating to patient care, provider participation is requested in all cases of prospect manager uncertainty. Please assist us with the question(s) below: Coding Question(s): Please clarify the etiology of the Chest Pain below: ( ) ACS ( ) GERD ( ) Anxiety ( ) Other Please Explain: Thank you Diony Coleman Principal Diagnosis: "that condition established after study, to be chiefly responsible for occasioning the admission of the patient to the hospital for care." Co-Existing Principal Diagnosis: "when two or more diagnoses equally meet the criteria for principal diagnosis as determined by the circumstances of admission, diagnostic work up, and/or therapy provided, and the Alphabetic Index, Tabular List, or another coding guideline does not provide sequencing direction, any one of the diagnoses may be sequenced first." "When the physician has documented what appears to be a current diagnosis in the body of the record, but has not included the diagnosis in the final diagnostic statement, the physician should be asked whether the diagnosis should be added." (Source [facility] 2 QTR90. p3-4) BETH
--- NOTE | 2021-01-05 08:47 | Coding Query ---
CODING QUERY To promote full compliance with coding requirements relating to patient care, provider participation is requested in all cases of junior automation engineer uncertainty. Please assist us with the question(s) below: Coding Question(s): Please clarify the etiology of the Chest Pain below: ( ) ACS ( ) GERD ( ) Anxiety ( x) Other Please Explain:likely multifactorial--GERD, Anxiety, can not rule out ACS Thank you Diony Coleman Principal Diagnosis: "that condition established after study, to be chiefly responsible for occasioning the admission of the patient to the hospital for care." Co-Existing Principal Diagnosis: "when two or more diagnoses equally meet the criteria for principal diagnosis as determined by the circumstances of admission, diagnostic work up, and/or therapy provided, and the Alphabetic Index, Tabular List, or another coding guideline does not provide sequencing direction, any one of the diagnoses may be sequenced first." "When the physician has documented what appears to be a current diagnosis in the body of the record, but has not included the diagnosis in the final diagnostic statement, the physician should be asked whether the diagnosis should be added." (Source [facility] 2 QTR90. p3-4) BETH
== END 2020-12-18 18:30 | DRG 880 ==
LOC: ED 12:55 → 1E 15:05 → SUATTDRO 15:05 → INTOOBSV 15:05 → 1E 20:27 → 2W 12-17 12:42